=== PATIENT | male | born 1955 | race Caucasian/White ===

== ENCOUNTER → 2016-11-14 | Outpatient (CLI) | payer OTHER ==
[~2016-11-14] MED LIST: ATOR1TAB19 PO; ENAL20TA PO; FLUT1SPR2
--- NOTE | 2016-11-14 16:38 | REP ---
CT IACS WITHOUT CONTRAST: HISTORY: Eustachian tube disorder. COMPARISON: 04/03/2009 The right internal auditory canal, cochlea, vestibule and semicircular canals are normal in appearance. The ossicles are normal in configuration and position. The scutum and tegmen are intact. There is retraction of the tympanic membrane. Minimal mucosal thickening is present in the hypotympanum and mastoid air cells. There is sclerosis of the mastoid. The left internal auditory canal, cochlea, vestibule and semicircular canals are normal in appearance. The ossicles are normal in configuration and position. The scutum and tegmen are intact. There is retraction of the tympanic membrane. The left middle ear cavity is clear. Mucosal thickening is present in the left mastoid air cells. There is sclerosis of the mastoid. Mucosal thickening is present in the ethmoid, maxillary and sphenoid sinuses. The sphenoid sinuses are hypoplastic. The nasopharynx is normal in appearance. IMPRESSION: The above findings are consistent with bilateral chronic inflammatory disease. Signed by Jaxson Kat MD 11/14/2016 04:40 P
== END ==
LOC: M RAD 14:42
PROVIDERS: ATTEND Physician Assistant Medical
DX: H69.83 Other specified disorders of Eustachian tube, bilateral (principal)

== ENCOUNTER 2019-01-12 12:13 | Day surgery (SDC) | payer OTHER ==
[~2019-01-12] VITALS: Ht 180.3 cm; Wt 82.1 kg
[~2019-01-12 12:13] MED LIST changes: +ASPI81TA85 PO; +LIDOCAINE 2% INJ 100 MG/5 ML SDV (FOR ANES.) As Ordered ONE; +NS 1,000 ML IV ONE; +OMEP40CA97 PO; +PROPOFOL 200 MG/20 ML VIAL As Ordered ONE
--- NOTE | 2019-01-12 13:40 | ROOR ---
Patient Name: Tonio Isabel Procedure Date: 01/12/2019 1:22 PM Date of : 1955 Age: 63 Room: [facility] Gender: Male Note Status: Finalized Procedure: Upper GI endoscopy Indications: Surveillance for malignancy due to personal history of Farias's esophagus Providers: Emigdio AHN MD Referring MD: Suzy Persaud DO Requesting Provider: Medicines: Monitored Anesthesia Care Complications: No immediate complications. Procedure: Pre-Anesthesia Assessment: - The heart rate, respiratory rate, oxygen saturations, blood pressure, adequacy of pulmonary ventilation, and response to care were monitored throughout the procedure. The Endoscope was introduced through the mouth, and advanced to the second part of duodenum. The upper GI endoscopy was accomplished without difficulty. The patient tolerated the procedure well. Findings: There were esophageal mucosal changes consistent with short-segment Farias's esophagus present in the lower third of the esophagus. The maximum longitudinal extent of these mucosal changes was 3 cm in length. Mucosa was biopsied with a cold forceps for histology randomly from 37 to 39 cm from the incisors. A total of 3 specimen bottles were sent to pathology. The exam of the esophagus was otherwise normal. The entire examined stomach was normal. The examined duodenum was normal. Impression: - Esophageal mucosal changes consistent with 3 cm Farias's esophagus. Biopsied. - Normal stomach. - Normal examined duodenum. Recommendation: - Continue present medications. - Continue present medications. - Telephone endoscopist for pathology results in 2 weeks. - Repeat upper endoscopy in 3 years for surveillance. Emigdio Ahn MD Emigdio AHN MD 01/12/2019 1:40:00 PM Electronically signed by Emigdio AHN MD Number of Addenda: 0 Note Initiated On: 01/12/2019 1:22 PM Estimated Blood Loss: Estimated blood loss: none.
[2019-01-12 14:00] VITALS: BP 116/78
== END 2019-01-12 14:06 | disposition home or self-care (01) ==
LOC: M OPP 12:13
PROVIDERS: ATTEND Internal Medicine Gastroenterology
DX: K22.70 Barrett's esophagus without dysplasia (principal); K22.8 Other specified diseases of esophagus; I10 Essential (primary) hypertension; E78.5 Hyperlipidemia, unspecified; K21.9 Gastro-esophageal reflux disease without esophagitis; R06.02 Shortness of breath; Z79.82 Long term (current) use of aspirin; Z79.899 Other long term (current) drug therapy

== ENCOUNTER → 2022-03-07 | Outpatient (CLI) | payer MEDICARE, OTHER ==
[~2022-03-07] MED LIST changes: -ASPI81TA85 PO; +ASPI81TA86 PO; +BAYE81TA10 PO; -ENAL20TA PO; +ENAL20TA11 PO; -LIDOCAINE 2% INJ 100 MG/5 ML SDV (FOR ANES.) As Ordered ONE; -NS 1,000 ML IV ONE; +OMEP40CA4 PO; -OMEP40CA97 PO; -PROPOFOL 200 MG/20 ML VIAL As Ordered ONE
== END ==
LOC: M LABSMTC 11:02
PROVIDERS: ATTEND Anesthesiology
DX: Z01.812 Encounter for preprocedural laboratory examination (principal); Z11.52 Encounter for screening for COVID-19

== ENCOUNTER 2022-03-12 09:46 | Day surgery (SDC) | payer MEDICARE, OTHER ==
[~2022-03-12] VITALS: Ht 180.3 cm; Wt 75.2 kg
[~2022-03-12 09:46] MED LIST changes: +NS 1,000 ML IV ONE
[2022-03-12] MEDS ORDERED: LIDOCAINE 2% 100MG/5ML SDV (FOR ANES.) As Ordered ONE (11:35)
[2022-03-12] MEDS ORDERED: propofoL 200 MG/20 ML VIAL As Ordered ONE (11:35)
[2022-03-12 11:50] VITALS: BP 128/69
== END 2022-03-12 11:59 | disposition home or self-care (01) ==
LOC: M OPP 09:46
PROVIDERS: ATTEND Internal Medicine Gastroenterology
DX: Z12.11 Encounter for screening for malignant neoplasm of colon (principal); Z86.010 Personal history of colon polyps; D12.2 Benign neoplasm of ascending colon; D12.4 Benign neoplasm of descending colon; K64.8 Other hemorrhoids; K44.9 Diaphragmatic hernia without obstruction or gangrene; K22.70 Barrett's esophagus without dysplasia; I10 Essential (primary) hypertension; E78.00 Pure hypercholesterolemia, unspecified; Z79.02 Long term (current) use of antithrombotics/antiplatelets; Z79.899 Other long term (current) drug therapy

== ENCOUNTER → 2022-04-25 | Outpatient (CLI) | payer MEDICARE, OTHER ==
[~2022-04-25] MED LIST changes: +GLUCAGON INJ 1MG VIAL As Ordered ONE; +ISOVUE-370 76% 100ML VIAL As Ordered ONE; +NEULUMEX 0.1% SUSPENSION 450ML BOTTLE (FORMERLY VOLUMEN) As Ordered ONE; -NS 1,000 ML IV ONE
== END ==
LOC: M RAD 13:59
PROVIDERS: ATTEND Physician Assistant Medical
DX: R63.4 Abnormal weight loss (principal); J47.9 Bronchiectasis, uncomplicated; R91.8 Other nonspecific abnormal finding of lung field; K76.89 Other specified diseases of liver; N28.1 Cyst of kidney, acquired; M47.9 Spondylosis, unspecified
CPT/HCPCS: 74177; J1610; Q9967

== ENCOUNTER → 2022-05-03 | Outpatient (CLI) | payer MEDICARE, OTHER ==
[~2022-05-03] MED LIST changes: +E-Z-GAS II EFFERVESCENT PACKET (SODIUM BICARB./CITRIC ACID/SIMETHICONE) As Ordered ONE; +E-Z-HD 98% w/w 340GM SUSP BTL As Ordered ONE; +E-Z-PAQUE 96% w/w SUSP 176GM BTL As Ordered ONE; -GLUCAGON INJ 1MG VIAL As Ordered ONE; -ISOVUE-370 76% 100ML VIAL As Ordered ONE; -NEULUMEX 0.1% SUSPENSION 450ML BOTTLE (FORMERLY VOLUMEN) As Ordered ONE
== END ==
LOC: M RAD 07:58
PROVIDERS: ATTEND Physician Assistant Medical
DX: R13.10 Dysphagia, unspecified (principal); K21.9 Gastro-esophageal reflux disease without esophagitis; K22.70 Barrett's esophagus without dysplasia

== ENCOUNTER → 2022-07-05 | Outpatient (CLI) | payer MEDICARE, OTHER ==
[~2022-07-05] MED LIST changes: -E-Z-GAS II EFFERVESCENT PACKET (SODIUM BICARB./CITRIC ACID/SIMETHICONE) As Ordered ONE; -E-Z-HD 98% w/w 340GM SUSP BTL As Ordered ONE; -E-Z-PAQUE 96% w/w SUSP 176GM BTL As Ordered ONE
== END ==
LOC: M CARPUL 12:46
PROVIDERS: ATTEND Family Medicine
DX: Z00.00 Encounter for general adult medical examination without abnormal findings (principal); I35.0 Nonrheumatic aortic (valve) stenosis; R09.89 Other specified symptoms and signs involving the circulatory and respiratory systems; J47.9 Bronchiectasis, uncomplicated; K21.9 Gastro-esophageal reflux disease without esophagitis; I10 Essential (primary) hypertension; R13.19 Other dysphagia; E78.49 Other hyperlipidemia